=== PATIENT | female | born 1955 | race Caucasian/White ===

== ENCOUNTER → 2016-08-06 | Outpatient (CLI) | payer MEDICAID | LOC: FIMAGING 15:57 | DX: Z12.31 Encounter for screening mammogram for malignant neoplasm of breast (principal) | CPT/HCPCS: G0202 ==

== ENCOUNTER → 2017-04-19 | Outpatient (CLI) | payer MEDICAID ==
[~2017-04-19] MED LIST: GADOBUTROL 10 ML VIAL IVP ONE
== END ==
LOC: FIMAGING 18:48
PROVIDERS: ATTEND Otolaryngology
DX: H90.42 Sensorineural hearing loss, unilateral, left ear, with unrestricted hearing on the contralateral side (principal)
CPT/HCPCS: A9585

== ENCOUNTER → 2017-05-08 | Outpatient (CLI) | payer MEDICAID | LOC: FIMAGING 14:22 | PROVIDERS: ATTEND Internal Medicine | DX: J40 Bronchitis, not specified as acute or chronic (principal) ==

== ENCOUNTER → 2017-05-22 | Outpatient (CLI) | payer MEDICAID ==
[~2017-05-22] MED LIST changes: -GADOBUTROL 10 ML VIAL IVP ONE; +IOPAMIDOL (ISOVUE-300) 100 ML BTL ONE
== END ==
LOC: FIMAGING 15:48
PROVIDERS: ATTEND Internal Medicine
DX: R91.8 Other nonspecific abnormal finding of lung field (principal)
CPT/HCPCS: Q9967

== ENCOUNTER 2017-06-07 08:23 | Day surgery (SDC) | payer MEDICAID ==
[2017-06-07] MEDS ORDERED: LR 1,000 ML IV ONE (08:53)
[2017-06-07 09:01] VITALS: PULSE 89
[2017-06-07] MEDS ORDERED: fentaNYL 100 MCG/2 ML INJ IVP PRN (09:35)
[2017-06-07] MEDS ORDERED: DEXAMETHASONE 4 MG/ML VIAL IVP PRN (09:35)
[2017-06-07] MEDS ORDERED: NALOXONE HCL 0.4 MG/ML INJ IVP PRN (09:35)
[2017-06-07] MEDS ORDERED: ONDANSETRON 4 MG/2 ML VIAL IVP PRN (09:35)
[2017-06-07] MEDS ORDERED: NS 500 ML IV PRN (09:35)
--- NOTE | 2017-06-07 09:35 | PDANEPAE ---
ANE History of Present Illness Lanny Garcia is a 62 year old female with PMH of anemia here for EGS and colonoscopy. She has a family history of pseudocholinesterase deficiency. ANE Past Medical History - Cardiovascular History Hx Hypertension: No Hx Arrhythmias: No Hx Chest Pain: No Hx Coronary Artery / Peripheral Vascular Disease: No Hx CHF / Valvular Disease: No Hx Palpitations: No - Pulmonary History Hx COPD: No Hx Asthma/Reactive Airway Disease: No Hx Recent Upper Respiratory Infection: No Hx Oxygen in Use at Home: No Hx Sleep Apnea: No - Neurologic History Hx Cerebrovascular Accident: No Hx Seizures: No Hx Dementia: No - Endocrine History Hx Diabetes: No - Renal History Hx Renal Disorders: No - Liver History Hx Hepatic Disorders: No - Neurological & Psychiatric Hx Hx Neurological and Psychiatric Disorders: No - Cancer History Hx Cancer: No - Congenital Disorder History Hx Congenital Disorders: No - GI History Hx Gastrointestinal Disorders: No - Chronic Pain History Chronic Pain: No - Surgical History Prior Surgeries: none ANE Review of Systems Review of Systems: - Exercise capacity METS (RN): 6 METS ANE Patient History - Allergies Allergies/Adverse Reactions: No Known Allergies Allergy (Unverified 06/07/17 08:55) - Home Medications Home Medications: Herbals/Supplements -Info Only 06/07/17 [Last Taken 06/05/17] Iron 06/07/17 [Last Taken 06/05/17 08:00] Multivitamin 06/07/17 [Last Taken 06/05/17 12:00] - NPO status NPO Since - Liquids (Date): 06/06/17 NPO Since - Liquids (Time): 11:59 NPO Since - Solids (Date): 06/05/17 NPO Since - Solids (Time): 20:00 - Smoking Hx Smoking Status: Never smoked - Family Anes Hx Family Hx Anesthesia Complications: pseudocholinesterase deficiency ANE Labs/Vital Signs - Vital Signs Blood Pressure: 121/70 Heart Rate: 89 Respiratory Rate: 16 O2 Sat (%): 98 Height: 165.1 cm Weight: 52.617 kg ANE Physical Exam - Airway Neck exam: FROM Mallampati Score: Class 1 Mouth exam: normal dental/mouth exam - Pulmonary Pulmonary: no respiratory distress - Cardiovascular Cardiovascular: regular rate and rhythym - ASA Status ASA Status: I, II ANE Anesthesia Plan Anesthesia Plan: general endotracheal anesthesia, MAC
--- NOTE | 2017-06-07 09:39 | PDGENHP ---
History & Physical Chief Complaint: anemia History of Present Illness: new onset anemia with faitgue, Pertinent Past, Social, Family History: no tobacco. no fhx cc. had colon 2105 was normal Relevant Physical Exam: A+Ox3. CTA. S1S2,RRR. +BS, soft NT Cardiorespiratory Assessment: class 2
[2017-06-07] MEDS ORDERED: PROPOFOL/EMULSION 500 MG/50 ML BOTTLE IV ONE (09:41)
[2017-06-07] MEDS ORDERED: PROPOFOL 200 MG/20 ML VIAL ONE (09:47)
[2017-06-07 11:05] VITALS: TEMP 97.2
--- NOTE | 2017-06-07 11:41 | GIREPORT ---
[facility] - Endoscopy Department Patient Name: Lanny Serrano Procedure Date: 06/07/2017 9:40 AM Patient Type: Outpatient Attending MD/ ER Physician: Franny Emanuel Procedure: Colonoscopy Indications: Iron deficiency anemia Providers: Fredi Espinoza MD Referring MD: Dr. Lopes Medicines: Sedation Required Anesthesia Staff Assistance Complications: No immediate complications. Description of Procedure: After obtaining informed consent, the scope was passed under direct vis ion. Throughout the procedure, the patient's blood pressure, pulse, and oxyg en saturations were monitored continuously. The Colonoscope with irrigatio n channel was introduced through the anus and advanced to the terminal il eum, with identification of the appendiceal orifice and IC valve. The colono scopy was performed without difficulty. The patient tolerated the procedure w ell. The quality of the bowel preparation was good. Findings: The digital rectal exam was normal. The terminal ileum appeared normal. The entire examined colon appeared normal. Estimated Blood Loss: Estimated blood loss: none. Post Op Diagnosis: - The examined portion of the ileum was normal. - The entire examined colon is normal. - No specimens collected. Recommendation: - Resume previous diet. - Repeat colonoscopy in 10 years for screening purposes. - See EGD for other recommendations - Patient has a contact number available for emergencies. The signs and symptoms of potential delayed complications were discussed with the pat ient. Return to normal activities tomorrow. Written discharge instructions we re provided to the patient. - Continue present medications. - Discharge patient to home (ambulatory). - Return to primary care physician as previously scheduled. - Thank you for allowing me to help in your patient's care. Do not hesi finley to call with any questions. Attending Participation: I personally performed the entire procedure. Alexis Rai M.D Fredi Espinoza MD 06/07/2017 11:40:22 AM This report has been signed electronicallyMathew MD Alexis Number of Addenda: 0 Note Initiated On: 06/07/2017 9:40 AM Total Procedure Duration Time 0 hours 8 minutes 29 seconds [email or web address]
--- NOTE | 2017-06-07 11:45 | GIREPORT ---
[facility] - Endoscopy Department Patient Name: Lanny Serrano Procedure Date: 06/07/2017 9:41 AM Patient Type: Outpatient Attending MD/ ER Physician: Franny Emanuel Procedure: Upper GI endoscopy Indications: Iron deficiency anemia - normal ferritin but low iron saturation ?anemi a of chronic inflammation? Providers: Freid Espinoza MD Referring MD: Dr. Lopes Medicines: Sedation Required Anesthesia Staff Assistance Complications: No immediate complications. Estimated blood loss: Minimal. Description of Procedure: After obtaining informed consent, the endoscope was passed under direct vision. Throughout the procedure, the patient's blood pressure, pulse, and oxygen saturations were monitored continuously. The Endoscope was intro duced through the mouth, and advanced to the second part of duodenum. The [facility] er GI endoscopy was accomplished without difficulty. The patient tolerated th e procedure well. Findings: The examined esophagus was normal. Scattered mild inflammation with hemorrhage characterized by adherent b lood, erythema, friability and granularity was found in the gastric body and in the gastric antrum. Biopsies were taken with a cold forceps for histolo gy. Estimated blood loss was minimal. The examined duodenum was normal. Biopsies for histology were taken wit h a cold forceps for evaluation of celiac disease. Estimated blood loss was minimal. The exam was otherwise without abnormality. Estimated Blood Loss: Estimated blood loss was minimal. Post Op Diagnosis: - Normal esophagus. - Gastritis with hemorrhage. Biopsied. - Normal examined duodenum. Biopsied. - The examination was otherwise normal. Recommendation: - Await pathology results. - My office will call with the pathology result with 5-7 days. If you h ave not heard from my office by 12-14, do not assume the pathology is deneen l, please call [phone] to get the pathology results. - Perform a colonoscopy today. - Use Protonix (pantoprazole) 40 mg PO daily. Take 30-60 minutes before breakfast. take for 8 weeks, or until anemia resolves. - If anemia persists, consider hematology consultation. - Patient has a contact number available for emergencies. The signs and symptoms of potential delayed complications were discussed with the pat ient. Return to normal activities tomorrow. Written discharge instructions we re provided to the patient. - Continue present medications. - Discharge patient to home (ambulatory). - Return to primary care physician as previously scheduled. - Thank you for allowing me to help in your patient's care. Do not hesi finley to call with any questions. Attending Participation: I personally performed the entire procedure. Alexis Rai M.D Fredi Espinoza MD 06/07/2017 11:45:20 AM This report has been signed electronicallyMathew MD Alexis Number of Addenda: 0 Note Initiated On: 06/07/2017 9:41 AM [email or web address]
[2017-06-07 12:03] VITALS: RESP 12
[2017-06-07 12:04] VITALS: BP 120/51; O2SAT 98
--- NOTE | 2017-06-07 12:48 | POSTANESTH ---
Post Anesthetic Evaluation Cardiovascular Status: Normal, Stable Respiratory Status: Normal, Stable Level of Consciousness/Mental Status: Can Participate in Eval Pain Control: Adequate, Prn Tx Ordered Nausea/Vomiting Control: Adequate, Prn Tx Ordered Complications Possibly Related to Anesthesia: None Noted
== END 2017-06-07 12:00 | disposition home or self-care (01) ==
LOC: FSGY 08:23
PROVIDERS: ATTEND Internal Medicine Gastroenterology
PROC: 0DJD8ZZ Inspection of Lower Intestinal Tract, Via Natural or Artificial Opening Endoscopic (ICD-10-PCS; principal; 2017-06-07 09:45)
PROC: 0DB98ZX Excision of Duodenum, Via Natural or Artificial Opening Endoscopic, Diagnostic (ICD-10-PCS; principal; 2017-06-07 09:45)
PROC: 0DB68ZX Excision of Stomach, Via Natural or Artificial Opening Endoscopic, Diagnostic (ICD-10-PCS; principal; 2017-06-07 09:45)
DX: D50.9 Iron deficiency anemia, unspecified (principal); K29.71 Gastritis, unspecified, with bleeding; R53.83 Other fatigue
CPT/HCPCS: J2704

== ENCOUNTER → 2017-08-08 | Outpatient (CLI) | payer MEDICAID | LOC: FIMAGING 08:57 | PROVIDERS: ATTEND Internal Medicine | DX: Z13.820 Encounter for screening for osteoporosis (principal); M81.0 Age-related osteoporosis without current pathological fracture ==

== ENCOUNTER → 2018-08-12 | Outpatient (CLI) | payer MEDICAID | LOC: FIMAGING 10:31 | PROVIDERS: ATTEND Internal Medicine | DX: Z12.31 Encounter for screening mammogram for malignant neoplasm of breast (principal) ==